=== PATIENT | female | born 2005 | race Caucasian/White ===

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

== ENCOUNTER → 2024-05-15 11:25 | Outpatient (CLI) | payer OTHER, SELFPAY | PROVIDERS: Visit Provider Physician Assistant Medical | DX: R30.0 Dysuria (principal); N30.00 Acute cystitis without hematuria; R11.10 Vomiting, unspecified | CPT/HCPCS: 87077; 87086; 87186 ==